=== PATIENT | female | born 1960 | race Caucasian/White ===

== ENCOUNTER 2022-01-09 12:57 | Outpatient (CLI) | payer MEDICARE, SELFPAY ==
[2022-01-09 14:15] LABS: Cholesterol* 191 mg/dL (90-199); HDL Cholesterol* 76 mg/dL (>=50); LDL Cholesterol Calculated 89 mg/dL (<100); Triglycerides* 129 mg/dL (40-149)
== END 2022-01-09 12:58 | disposition home or self-care (01) ==
PROVIDERS: PCP Family Medicine; Visit Provider Family Medicine
DX: E78.5 Hyperlipidemia, unspecified (principal)
CPT/HCPCS: 80061

== ENCOUNTER 2022-01-18 09:47 | Outpatient (CLI) | payer MEDICARE, SELFPAY ==
--- NOTE | 2022-01-18 10:15 | CRLHL7_ITS ---
For Patients: As a result of the Century Cures Act, medical imaging exams and procedure reports are released immediately into your electronic medical record. You may view this report before your referring provider. If you have questions, please contact your health care provider. Technique: Double-contrast upper GI performed after the uneventful administration of effervescent crystals and thick barium followed by thin barium. Fluoroscopy time 1 minutes 7 seconds. Indication: Dysphagia, chronic cough Comparison: None. Findings: Swallowing mechanism: Normal. Esophageal motility: Normal. Gastroesophageal reflux: Mild. Hernia: Small sliding hiatal hernia. Esophagus, stomach and duodenal bulb mucosa: Normal mucosa. No stricture or mass. Impression: Small sliding hiatal hernia and mild spontaneous gastroesophageal reflux. Dictated by Terry Amaya MD @ 01/18/2022 11:07:15 AM (Electronically Signed)
== END 2022-01-18 09:48 | disposition home or self-care (01) ==
LOC: RAD 09:49
PROVIDERS: PCP Family Medicine; Visit Provider Surgery
DX: R13.10 Dysphagia, unspecified (principal); K44.9 Diaphragmatic hernia without obstruction or gangrene; K21.9 Gastro-esophageal reflux disease without esophagitis
CPT/HCPCS: 74246

== ENCOUNTER 2022-01-20 09:43 | Outpatient (CLI) | payer MEDICARE, SELFPAY ==
--- NOTE | 2022-01-20 11:04 | W.ANESCHARGE ---
Anesthesia Charges Start Date/Time Anesthesia Start Date: 01/20/22 Anesthesia Start Time: 10:38 Stop Date/Time Anesthesia Stop Date: 01/20/22 Anesthesia Stop Time: 11:00 Summary Emergency: No
--- NOTE | 2022-01-20 11:25 | W.ANESCHARGE ---
Anesthesia Charges Start Date/Time Anesthesia Start Date: 01/20/22 Anesthesia Start Time: 10:38 Stop Date/Time Anesthesia Stop Date: 01/20/22 Anesthesia Stop Time: 11:00 Summary Emergency: No
== END 2022-01-20 09:44 | disposition home or self-care (01) ==
LOC: OP CLINIC 09:46
PROVIDERS: PCP Family Medicine; Visit Provider Internal Medicine
DX: R13.10 Dysphagia, unspecified (principal); K21.9 Gastro-esophageal reflux disease without esophagitis; K29.70 Gastritis, unspecified, without bleeding; R19.8 Other specified symptoms and signs involving the digestive system and abdomen
CPT/HCPCS: 00731; 43239; 88305; J2704

== ENCOUNTER 2022-10-12 09:59 | Outpatient (CLI) | payer MEDICARE, SELFPAY ==
--- NOTE | 2022-10-12 12:27 | W.ANESCHARGE ---
Anesthesia Charges Start Date/Time Anesthesia Start Date: 10/12/22 Anesthesia Start Time: 11:40 Stop Date/Time Anesthesia Stop Date: 10/12/22 Anesthesia Stop Time: 12:19
== END 2022-10-12 10:00 | disposition home or self-care (01) ==
LOC: OP CLINIC 09:59
PROVIDERS: PCP Family Medicine; Visit Provider Surgery
DX: K62.5 Hemorrhage of anus and rectum (principal); K63.5 Polyp of colon; K64.8 Other hemorrhoids; K64.4 Residual hemorrhoidal skin tags
CPT/HCPCS: 00811; 45380; 88305; J2704

== ENCOUNTER 2023-01-24 07:39 | Outpatient (CLI) | payer MEDICARE, SELFPAY | END 2023-01-24 07:40 | disposition home or self-care (01) | PROVIDERS: PCP Family Medicine; Visit Provider Family Medicine | DX: Z00.00 Encounter for general adult medical examination without abnormal findings (principal); I10 Essential (primary) hypertension; E66.01 Morbid (severe) obesity due to excess calories; E78.5 Hyperlipidemia, unspecified; F32.A Depression, unspecified | CPT/HCPCS: 80053; 80061; 82043; 82306; 82570 ==

== ENCOUNTER 2023-08-21 14:23 | Outpatient (REF) | payer MEDICARE, SELFPAY ==
[2023-08-21 15:11] LABS: Hematocrit 37.2 % (33.0-51.0); Hemoglobin* 12.5 gm/dL (12.0-16.0); Mean Corpuscular HGB Conc 34 gm/dL (32-36); Mean Corpuscular Hemoglobin 32 pg (26-34); Mean Corpuscular Volume 95 fL (80-100); Platelet Count* 363 K/uL (140-440); Red Blood Count 3.93 m/uL (4.00-5.20); White Blood Count* 5.61 K/uL (4.50-11.00)
[2023-08-21 15:13] LABS: Slide Review Reflex No
[2023-08-21 15:15] LABS: Albumin* 4.6 g/dL (3.3-5.0)
[2023-08-21 15:18] LABS: Creatinine* 0.7 mg/dL (0.5-1.5); Estimated Glomerular Filt Rate 97 ml/min
[2023-08-21 15:19] LABS: Alanine Aminotransferase* 29 U/L (4-35); Aspartate Amino Transferase* 41 U/L (12-35)
[2023-08-21 15:26] LABS: C Reactive Protein* < 0.5 mg/dL (0.5-1.0)
[2023-08-21 16:02] LABS: Erythrocyte SedimentationRate* 23 mm/hr (2-20)
== END 2023-08-21 14:24 | disposition home or self-care (01) ==
LOC: NPINS 14:23
PROVIDERS: PCP Family Medicine; Visit Provider Internal Medicine Rheumatology
DX: M06.09 Rheumatoid arthritis without rheumatoid factor, multiple sites (principal); Z79.899 Other long term (current) drug therapy
CPT/HCPCS: 82040; 82565; 84450; 84460; 85027; 85651; 86140

== ENCOUNTER 2023-09-13 06:59 | Outpatient (CLI) | payer MEDICARE, SELFPAY ==
--- NOTE | 2023-09-13 09:07 | W.ANESCHARGE ---
Anesthesia Charges Start Date/Time Anesthesia Start Date: 09/13/23 Anesthesia Start Time: 08:20 Stop Date/Time Anesthesia Stop Date: 09/13/23 Anesthesia Stop Time: 09:05
--- NOTE | 2023-09-13 09:52 | W.ANESCHARGE ---
Anesthesia Charges Start Date/Time Anesthesia Start Date: 09/13/23 Anesthesia Start Time: 08:20 Stop Date/Time Anesthesia Stop Date: 09/13/23 Anesthesia Stop Time: 09:05
== END 2023-09-13 07:00 | disposition home or self-care (01) ==
LOC: OP CLINIC 06:59
PROVIDERS: PCP Physician Assistant Medical; Visit Provider Surgery
DX: K63.5 Polyp of colon (principal); K62.1 Rectal polyp; Z86.010 Personal history of colon polyps; K26.9 Duodenal ulcer, unspecified as acute or chronic, without hemorrhage or perforation; K21.9 Gastro-esophageal reflux disease without esophagitis; K44.9 Diaphragmatic hernia without obstruction or gangrene; R19.8 Other specified symptoms and signs involving the digestive system and abdomen
CPT/HCPCS: 00731; 00813; 43235; 45380; 45385; 88305; J2704

== ENCOUNTER 2024-07-23 08:30 | Outpatient (CLI) | payer MEDICARE, SELFPAY | END 2024-07-23 08:31 | disposition home or self-care (01) | LOC: NFLDREF 07-25 18:14 | PROVIDERS: PCP Family Medicine; Referring Provider Family Medicine; Visit Provider Family Medicine | DX: E78.2 Mixed hyperlipidemia (principal); I10 Essential (primary) hypertension | CPT/HCPCS: 80053; 80061 ==